=== PATIENT | female | born 1985 | race Caucasian/White ===

== ENCOUNTER 2017-03-25 23:52 | Emergency (ER) | payer OTHER ==
[~2017-03-25] VITALS: Ht 160 cm; Wt 63.5 kg
--- NOTE | 2017-03-26 01:41 | ED GI/GU/ABDOMINAL COMPLAINT ---
History of Present Illness General Chief Complaint: Female Urogenital Problems Stated Complaint: PER PT HAD IUD INSERTED TODAY C/O N/V PAIN Source: patient, family, old records Exam Limitations: no limitations Vital Signs & Intake/Output Vital Signs & Intake/Output Vital Signs Date Time Temp Pulse Resp B/P B/P Pulse O2 O2 Flow FiO2 Mean Ox Delivery Rate 03/26 0238 97.2 69 18 109/63 97 Room Air 03/26 0041 97.1 78 18 111/62 98 Room Air Allergies Coded Allergies: No Known Allergies (03/26/17) Reconcile Medications Ondansetron (Zofran Odt) 4 MG TAB.RAPDIS 1 TAB SL TID PRN nausea Oxycodone HCl/Acetaminophen (Percocet 5-325 MG Tablet) 5 MG-325 MG TABLET 1-2 TAB PO Q6P PRN severe pain Triage Note: TRIAGE: PATIENT TO ER FROM HOME C/O INTERMITTENT SEVER SHARP LOWER ABD PAIN W/ +N/V/D S/P IUD INSERTION EARLIER TODAY. USING HEATING PAD AND MOTRIN W/O RELIEF. STATES "WHEN THE PAIN COMES, IT FEELS LIKE LABOR PAINS." Triage Nurses Notes Reviewed? yes LMP (ages 10-50): unknown ? n Is pt currently ? No Onset: Afternoon Duration: hour(s):, constant, continues in ED, getting worse Timing: recent history Quality/Severity: cramping, moderate, severe, vomiting Location: suprapubic Radiation: no radiation Activities at Onset: none Prior Abdominal Problems: none Past Sexual History: Unobtainable at this time Modifying Factors: Worsens With: palpation. Associated Symptoms: abdominal pain, loss of appetite, nausea/vomiting HPI: 1 day prior to admission patient had IUD placed at [facility]. Several hours later she developed nausea vomiting lower abdominal pain described as moderate to severe crampy nonradiating constant worse with palpation and movement. She denies fever chills chest pain cough shortness of breath dysuria rash vaginal discharge bleeding headache. Past History Travel History Traveled to [place] past 21 day No Medical History Any Pertinent Medical History? 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 No Review of Systems Review of Systems Constitutional: Reports: no symptoms. EENTM: Reports: no symptoms. Respiratory: Reports: no symptoms. Cardiovascular: Reports: no symptoms. GI: Reports: see HPI, abdominal pain, nausea, vomiting. Genitourinary: Reports: see HPI, pain. Musculoskeletal: Reports: no symptoms. Skin: Reports: no symptoms. Neurological/Psychological: Reports: no symptoms. Hematologic/Endocrine: Reports: no symptoms. Immunologic/Allergic: Reports: no symptoms. All Other Systems: Reviewed and Negative Physical Exam Physical Exam General Appearance: well developed/nourished, alert, awake, anxious, moderate distress Head: atraumatic, normal appearance Eyes: Bilateral: normal appearance, PERRL, EOMI, normal inspection. Ears, Nose, Throat, Mouth: hearing grossly normal, moist mucous membrane Neck: normal inspection, supple, full range of motion, normal alignment Respiratory: normal breath sounds, chest non-tender, no respiratory distress, quiet respiration, lungs clear Cardiovascular: regular rate/rhythm, normal peripheral pulses, norml femoral pulses equa Peripheral Pulses: 4+ carotid (R), 4+ carotid (L) Gastrointestinal: normal bowel sounds, soft, no organomegaly, tenderness Pelvic: normal external exam Back: normal inspection, normal range of motion Extremities: normal range of motion, no ligament instability Neurologic/Psych: no motor/sensory deficits, awake, alert, oriented x 3, normal gait, normal mood/affect, depressed affect Skin: intact, normal color, warm/dry Core Measures ACS in differential dx? No Severe Sepsis Present: No Septic Shock Present: No Progress Differential Diagnosis: endometritis, perforated viscous Plan of Care: Orders Procedure Date/time Status LIPASE 03/26 140 Complete HUMAN BETA HCG SCREEN 03/26 140 Complete COMPREHENSIVE METABOLIC PANEL 03/26 140 Complete CBC WITHOUT DIFFERENTIAL 03/26 140 Complete Laboratory Tests 03/26/17 0200: Anion Gap 11, Estimated GFR > 60, BUN/Creatinine Ratio 18.3, Glucose 92, Calcium 9.7, Total Bilirubin 0.8, AST 22, ALT 36, Alkaline Phosphatase 58, Total Protein 7.3, Albumin 4.5, Globulin 2.8, Albumin/Globulin Ratio 1.6, Lipase 68, Total Beta HCG NEGATIVE, CBC w Diff NO MAN DIFF REQ, RBC 4.59, MCV 89.4, MCH 30.1, RDW 12.5, MPV 8.4, Gran % 90.0 H, Lymphocytes % 8.2 L, Monocytes % 1.8, Eosinophils % 0, Basophils % 0 L, Absolute Granulocytes 8.0 H, Absolute Lymphocytes 0.7 L, Absolute Monocytes 0.2, Absolute Eosinophils 0, Absolute Basophils 0, PUBS MCHC 33.7 Diagnostic Imaging: Viewed by Me: CT Scan. Discussed w/RAD: CT Scan. Radiology Impression: 1. IUD within the uterus. Correlation with pelvic ultrasound may be helpful to assess for IUD location along the endometrium versus embedment in the myometrium. 2. Tiny left lower pole renal calculus without hydronephrosis. Initial ED EKG: none Departure Departure Time of Disposition: 345 Disposition: HOME OR SELF CARE Condition: Stable Clinical Impression Primary Impression: Pain due to intrauterine contraceptive device (IUD) Secondary Impressions: Nausea and vomiting in adult, Pelvic pain Referrals: UNKNOWN (PCP/Family) Departure Forms: Customer Survey General Discharge Information Prescriptions: Current Visit Scripts Oxycodone HCl/Acetaminophen (Percocet 5-325 MG Tablet) 1-2 TAB PO Q6P PRN severe pain #15 TAB Ondansetron (Zofran Odt) 1 TAB SL TID PRN nausea #10 TAB
[2017-03-26 02:14] LABS: ABSOLUTE BASOPHIL COUNT 0 /CUMM (0.0-0.2); ABSOLUTE EOSINOPHIL COUNT 0 /CUMM (0.0-0.7); ABSOLUTE LYMPH COUNT 0.7 /CUMM (1.2-3.4); ABSOLUTE MONOCYTE COUNT 0.2 /CUMM (0.10-0.60); BASOPHIL % 0 % (0.0-2.0); EOSINOPHIL % 0 % (0-5); HEMATOCRIT 41.1 % (37-47); MEAN CORPUSCULAR HGB 30.1 PG (27.0-31.0); MEAN CORPUSCULAR HGB CONC 33.7 G/DL (33.0-37.0); MEAN CORPUSCULAR VOLUME 89.4 FL (81.0-99.0); MEAN PLATELET VOLUME 8.4 FL (7.4-10.4); PLATELET COUNT 274 /CUMM (130-400); RBC DISTRIBUTION WIDTH 12.5 % (11.5-14.5); RED BLOOD CELL CT 4.59 /CUMM (4.20-5.40); WHITE BLOOD CELL COUNT 8.9 /CUMM (4.8-10.8)
[2017-03-26 02:38] VITALS: BP 109/63
--- NOTE | 2017-03-26 02:57 | CT SCAN REPORT ---
EXAMINATION: CT ABDOMEN AND PELVIS WITHOUT CONTRAST CLINICAL INFORMATION: IUD placement with nausea/vomiting, pelvic pain COMPARISON: None TECHNIQUE: Multidetector volumetric imaging was performed from the superior aspect of the liver through the pubic symphysis. Sagittal and coronal reformatted images were obtained on the technologist's workstation. DLP: 257.29 mGy-cm FINDINGS: LUNG BASES: The visualized lung bases are unremarkable. LIVER, GALLBLADDER, AND BILIARY TREE: The liver is normal in size, shape, and attenuation. No focal hepatic lesion or biliary ductal dilatation is present. The gallbladder is unremarkable with no evidence of radiopaque gallstones, gallbladder wall thickening, or obvious pericholecystic inflammatory changes. PANCREAS: Unremarkable. SPLEEN: Unremarkable. ADRENAL GLANDS: Unremarkable. KIDNEYS AND URETERS: There is a 2 mm calculus in the lower pole of the left kidney. No hydronephrosis or ureteral calculi identified bilaterally. BLADDER: Unremarkable. GASTROINTESTINAL TRACT: The small and large bowel are unremarkable. The appendix is unremarkable. No free fluid or free air is seen. ABDOMINAL WALL: No significant hernia is appreciated. LYMPH NODES: No lymphadenopathy is seen, though assessment is limited in the absence of intravenous contrast. VASCULAR: Unremarkable. PELVIC VISCERA: An IUD is present within the uterus. OSSEOUS STRUCTURES: Limbus vertebra is noted at L4. IMPRESSION: 1. IUD within the uterus. Correlation with pelvic ultrasound may be helpful to assess for IUD location along the endometrium versus embedment in the myometrium. 2. Tiny left lower pole renal calculus without hydronephrosis.
[2017-03-26] MEDS ORDERED: ZOFRAN ODT4 M1 SL (03:48)
[2017-03-26] MEDS ORDERED: PERCOCET 5-3251 EACH PO (03:48)
== END 2017-03-26 03:57 ==
LOC: ERH 23:52
PROVIDERS: Emergency Medicine
DX: R11.2 Nausea with vomiting, unspecified (principal); T83.84XA Pain due to genitourinary prosthetic devices, implants and grafts, initial encounter
CPT/HCPCS: 74176; J1885; J2405